=== PATIENT | male | born 1965 | race Caucasian/White ===

== ENCOUNTER 2020-10-18 16:30 | Emergency (ER) | payer OTHER, SELFPAY ==
[2020-10-07 07:18] VITALS: BMI 30.9
[2020-10-18 16:34] VITALS: BP 135/93; PULSE 90; RESP 16; TEMP 36.3; O2SAT 96; BMI 33.7
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
== END 2020-10-18 17:14 | disposition home or self-care (01) ==
PROVIDERS: Emergency Provider Emergency Medicine; PCP Family Medicine
DX: S09.90XA Unspecified injury of head, initial encounter (principal); Y04.2XXA Assault by strike against or bumped into by another person, initial encounter; Y93.89 Activity, other specified; Y92.89 Other specified places as the place of occurrence of the external cause; Y99.0 Civilian activity done for income or pay
CPT/HCPCS: 99282

== ENCOUNTER → 2021-04-04 08:46 | Outpatient (CLI) | payer OTHER, SELFPAY ==
[2021-03-19 09:28] VITALS: BMI 33.7
--- NOTE | 2021-04-04 08:53 | RAD_ITS ---
STUDY: X-RAY - RIGHT SHOULDER REASON FOR EXAM: Right shoulder pain. TECHNIQUE: 4 view(s) of the shoulder. COMPARISON: None. FINDINGS: Normal glenohumeral articulation. There is mild acromioclavicular arthrosis. Normal acromion. Normal humeral head and visualized proximal humerus. The soft tissue structures are unremarkable. Normal visualized pulmonary apex. RAD/Shoulder min 2 Views IMPRESSION: Mild acromioclavicular arthrosis. Electronically Signed: Christiano Cortez MD at 9:40 EDT Tel , Service support ,
== END ==
PROVIDERS: PCP Family Medicine; Referring Provider Nurse Practitioner Family; Visit Provider Nurse Practitioner Family
DX: M25.511 Pain in right shoulder (principal)
CPT/HCPCS: 73030

== ENCOUNTER → 2021-06-11 17:48 | Outpatient (CLI) | payer OTHER, SELFPAY ==
--- NOTE | 2021-06-11 18:02 | MRI_ITS ---
STUDY: MRI RIGHT SHOULDER REASON FOR EXAM: Right shoulder pain since 2017. TECHNIQUE: Standardized fat and water weighted pulse sequences were obtained in all 3 orthogonal planes. COMPARISON: Radiographs 04/04/2021. FINDINGS: Normal supraspinatus tendon. There is mild infraspinatus tendinosis (T2 sagittal images 6, 7) without discrete tendon tear. Normal subscapularis tendon. Normal teres minor tendon. Normal supraspinatus muscle. Normal infraspinatus muscle. Normal subscapularis muscle. There is mild atrophy with mild partial fat replacement of the teres minor muscle (T2 sagittal images 17-22). Normal glenohumeral articulation. Normal humeral head and visualized proximal humerus. There is a SLAP lesion (T2 coronal images 8-14) with a paralabral cyst in the spinoglenoid notch (T2 sagittal image 21) measuring 2 cm in length containing a small pocket of gas (proton-density coronal image 11). Normal intracapsular long biceps tendon. Normal capsulo- ligamentous complex. There is mild acromioclavicular arthrosis with capsular thickening effacing the subacromial fat (T2 sagittal image 17). There is a Type II morphology (curved), with a neutral orientation. There is no subacromial-subdeltoid bursal fluid. Normal visualized coracohumeral and coracoacromial ligaments. Normal deltoid muscle. Normal trapezius muscle. MRI/Upper Ext Joint Only(Routine) IMPRESSION: SLAP lesion with paralabral cyst. Mild infraspinatus tendinosis without demonstrated rotator cuff tear. Mild atrophy of the teres minor muscle. Mild acromioclavicular arthrosis. Electronically Signed: Christiano Cortez MD at 9:28 EDT Tel , Service support ,
== END ==
PROVIDERS: PCP Family Medicine; Visit Provider Nurse Practitioner Family
DX: M25.511 Pain in right shoulder (principal)
CPT/HCPCS: 73221

== ENCOUNTER 2021-12-12 17:51 | Emergency (ER) | payer OTHER, SELFPAY ==
[2021-12-12 17:52] VITALS: BP 133/98; PULSE 93; RESP 16; TEMP 36.9; O2SAT 97; BMI 34.4
[2021-12-12] MEDS: Diphth,Pertuss(Acell),Tet Vac 0.5 ML Vial IM (18:39)
[2021-12-12] MEDS: Lidocaine 1% (20 ml mdv) 20 ML Vial INFILT (18:41)
--- NOTE | 2021-12-12 19:17 | EX.ED.UPPERE ---
HPI History of Present Illness HPI Narrative: Patient presents with a laceration to his left index finger that occurred today. Patient states he got home from work today and went to his garage to do some work. Patient open to cover and a razor knife fell out of the cupboard. Patient did not realize it what it was until he went to grab it. Patient cut the radial aspect of his left index finger with a razor knife. Patient denies any paresthesias or weakness. Patient is unsure of his last tetanus. Patient describes his pain is burning and stinging. Patient states it is worse whenever he tries to bend his finger. Patient denies any other injuries. Chief Complaint: Laceration Informant: patient Occured/Mechanism Comment: Cut with razor knife Onset/Context/Timing Context: Sudden Onset Timing: Continuous Quality of Pain: Burning and - (Stinging) Location: Left index finger Worsened by: Bending finger Relieved by: Nothing Associated Symptoms Associated Symptoms: Negative for Parasthesia, Weakness and Loss of Funtion Narrative Tetanus Immunization: Unknown [facility] Medical History COVID-19 Lab test negative for COVID-19 virus Home Medications NK 10/18/20 [History Last Taken Unknown] Allergy/AdvReac Type Severity Reaction Status Date / Time No Known Allergies Allergy Verified 12/12/21 17:52 Social History household members: spouse Smoking Status: Never smoker alcohol intake: never substance use type: does not use what 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, [employer]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 do you feel safe at home: Yes ROS ROS ED Constitutional Constitutional ED: Denies chills or fever(s) Eyes Eyes: Denies blurry vision or change in vision ENT ENT ED: Denies rhinorrhea or sore throat Cardiovascular Cardiovascular: Denies chest pain or palpitations Respiratory/Chest Respiratory/Chest: Denies cough or dyspnea Gastrointestinal Gastrointestinal: Denies nausea or vomiting Genitourinary Genitourinary ED: Denies dysuria or hematuria Musculoskeletal Musculoskeletal: Reports neck pain; Denies back pain Integumentary Denies abscess or rash Neurologic Neurologic: Denies headache(s) or weakness Allergic/Immunologic Allergic/Immunologic ED: Denies mouth swelling or urticaria EXAM Physical Exam Const Vital Signs: 12/12/21 17:52 Temperature 98.4 F Temperature Source Temporal Pulse Rate 93 Respiratory Rate 16 Blood Pressure 133/98 H Blood Pressure Mean 109 Pulse Ox 97 Oxygen Delivery Method Room Air Positive well nourished and well developed General Appearance ED: well developed and NAD HEENT Reports moist mucous membranes Neck full ROM and supple Extremity Extremity Narrative: There is a 2 cm full-thickness linear laceration over the radial aspect of the middle phalanx of the left index finger. There is mild gapping of the wound margins. There is no foreign body noted. There is mild bleeding noted. Sensation was intact to light touch in all digits. Capillary refill is less than 2 seconds in all digits. Radial pulses are equal bilaterally. Strength is 5/5 in flexion extension of the MP, PIP, and DIP joints of the left index finger. Neuro oriented x3, CN's II-XII intact bilaterally, moves all extremities, no focal motor deficits and no sensory deficits noted Sensorium / Orientation: alert Psych mental status grossly normal MDM MDM MDM Narrative Medical decision making narrative: Patient was given a tetanus booster. The wound was cleaned and irrigated with copious amounts of normal saline. The wound was anesthetized with 1% plain lidocaine via digital block. The wound was closed with 2 simple interrupted #5-0 nylon sutures under sterile technique. Patient tolerated the procedure well. Bacitracin dressing was applied. Patient was instructed to follow-up with his primary care physician in 5 days for wound recheck and suture removal. Patient understood and was agreeable with the plan. All questions were answered. Procedures Lacerations Left index finger: Length: 2 cm Depth: Skin Shape: Linear Prep: Sterile Conditions and Shure-Clens Irrigated (ml): 50 Number of Sutures/Marci: 2 Suture Information: Ethilon, Simple and 5-0 Discharge Plan Triage Chief Complaint: Laceration ED Provider: Femi Hurley Dx/Rx/DC Orders Clinical Impression: Laceration of finger of left hand Instructions: ED Laceration, Hand: All Closures Prescriptions: No Action NK RF: 0 Primary Care Provider: Marla Blackmon Referrals: Marla Blackmon MD [Primary Care Provider] - 5 Days for suture removal Disposition Disposition: Home, Self Care
[2021-12-12 19:23] VITALS: BP 135/86; PULSE 87; RESP 16; O2SAT 97
== END 2021-12-12 19:32 | disposition home or self-care (01) ==
PROVIDERS: Emergency Provider Emergency Medicine; PCP Family Medicine; Visit Provider Emergency Medicine
DX: S61.219A Laceration without foreign body of unspecified finger without damage to nail, initial encounter (principal); W26.8XXA Contact with other sharp object(s), not elsewhere classified, initial encounter; Y93.89 Activity, other specified; Y99.9 Unspecified external cause status; Y92.008 Other place in unspecified non-institutional (private) residence as the place of occurrence of the external cause; Z86.16 Personal history of COVID-19; Z23 Encounter for immunization
CPT/HCPCS: 12001; 90471; 90715; 99283

== ENCOUNTER → 2023-10-20 | Outpatient (CLI) | payer OTHER, SELFPAY ==
--- NOTE | 2023-10-20 17:33 | RAD_ITS ---
STUDY: X-RAY - RIGHT SHOULDER REASON FOR EXAM: Male, 58 years old. PAIN IN NECK TO SHOULDER TECHNIQUE: 4 view(s) of the shoulder. COMPARISON: None. FINDINGS: Normal glenohumeral articulation. Normal acromioclavicular joint. Normal acromion. Normal humeral head and visualized proximal humerus. The soft tissue structures are unremarkable. There is no demonstrated fracture. Normal visualized pulmonary apex. RAD/Shoulder min 2 Views IMPRESSION: Normal x-ray examination of the shoulder. Electronically Signed: Earline Ulloa MD at 21:34 EST ,
== END | disposition home or self-care (01) ==
PROVIDERS: PCP Family Medicine; Visit Provider Clinical Nurse Specialist Adult Health
DX: M25.511 Pain in right shoulder (principal)
CPT/HCPCS: 73030

== ENCOUNTER → 2024-02-04 | Outpatient (CLI) | payer OTHER, SELFPAY ==
[2024-02-04 17:08] LABS: Albumin, Serum 3.5 g/dL (3.2-5.0); BUN 14 mg/dL (7-18); BUN/Creat Ratio 10.1 RATIO (10-20); Calcium,Total 8.5 mg/dL (8.5-10.1); Chloride 104 mmol/L (98-107); Creatinine, Serum 1.39 mg/dL (0.70-1.30); EST Glomerular Filtration Rate 56 mL/min (>60); Est Glom Filt Rate - Afr Amer 68 mL/min (>60); Glucose 81 mg/dL (74-106); Potassium 3.9 mmol/L (3.5-5.1); Sodium Level 137 mmol/L (136-145)
== END | disposition home or self-care (01) ==
LOC: LAB 15:35
PROVIDERS: PCP Family Medicine; Referring Provider Family Medicine; Visit Provider Family Medicine
DX: N18.31 Chronic kidney disease, stage 3a (principal)
CPT/HCPCS: 36415; 80069

== ENCOUNTER → 2024-10-03 | Outpatient (CLI) | payer BC, SELFPAY ==
--- NOTE | 2024-10-03 18:25 | RAD_ITS ---
PROCEDURE: ELBOW MIN 3 VIEWS REASON FOR EXAM: Pain TECHNIQUE: 2 view(s) of each elbow COMPARISON: None. FINDINGS: Negative for acute fracture or malalignment. No significant joint effusion or arthropathy. RAD/Elbow min 3 Views IMPRESSION: No acute osseous abnormality. Reading Location: [facility]
== END | disposition home or self-care (01) ==
PROVIDERS: PCP Family Medicine; Visit Provider Clinical Nurse Specialist Adult Health
DX: M25.522 Pain in left elbow (principal)
CPT/HCPCS: 73080